=== PATIENT | male | born 1970 | race Caucasian/White ===

== ENCOUNTER 2023-06-24 07:33 | Outpatient (RCR) | payer BC, SELFPAY ==
[2023-05-29 08:05] LABS: Glucose - Point of Care 110 mg/dl (70-99)
[2023-05-29 08:53] LABS: Glucose - Point of Care 107 mg/dl (70-99)
== END 2023-06-24 23:59 | disposition home or self-care (01) ==
LOC: CRHB 07:33
PROVIDERS: ATTENDING PHYSICIAN Internal Medicine Cardiovascular Disease
DX: I25.10 Atherosclerotic heart disease of native coronary artery without angina pectoris (principal); Z95.1 Presence of aortocoronary bypass graft; Z95.5 Presence of coronary angioplasty implant and graft
CPT/HCPCS: 82962; 93797; 93798; G0422; G0423

== ENCOUNTER 2023-07-03 07:45 | Outpatient (RCR) | payer BC, SELFPAY | END 2023-07-03 23:59 | disposition home or self-care (01) | LOC: CRHB 07:45 | PROVIDERS: ATTENDING PHYSICIAN Internal Medicine Cardiovascular Disease | DX: I25.10 Atherosclerotic heart disease of native coronary artery without angina pectoris (principal); Z95.1 Presence of aortocoronary bypass graft | CPT/HCPCS: 93797; 93798 ==

== ENCOUNTER 2025-05-03 07:17 | Emergency (ER) | payer BC, SELFPAY ==
[2025-05-03] VITALS (7 sets, daily range): BP systolic 116–160; BP diastolic 78–92; BMI 28.2
[2025-05-03 08:34] LABS: Hematocrit 42.5 % (39.0-52.0); Hemoglobin 14.3 g/dL (13.0-18.0); Mean Corp Hgb Conc. 33.6 g/dL (33.0-37.0); Mean Corpuscular Volume 82.7 fL (80.0-94.0); Nucleated Red Blood Cells % 0 % (-); Platelet Count 241 10^3/uL (130-400); Red Cell Dist. Width 13.6 % (11.5-14.5)
[2025-05-03 08:44] LABS: ALT (SGPT) 48 U/L (0-50); AST (SGOT) 40 U/L (17-59); Albumin 4.5 g/dl (3.5-5.0); Alkaline Phosphatase 27 U/L (38-126); Blood Urea Nitrogen 13 mg/dl (9-20); Calcium 9.7 mg/dl (8.4-10.2); Carbon Dioxide 25 mmol/L (22-30); Chloride 106 mmol/L (98-107); Glucose 136 mg/dl (70-99); Potassium 4.5 mmol/L (3.5-5.1); Sodium 137 mmol/L (135-145); Total Protein 7.0 g/dl (6.3-8.2); eGFR > 60.00
--- NOTE | 2025-05-03 08:51 | ED.GENMED ---
History of Present Illness
General
Chief Complaint: Blood Pressure Problem
Source: patient
Exam Limitations: none
Time Seen by Provider: 05/03/25 07:39
Nursing documentation reviewed up to this point in time: agreed with
History of Present Illness
History of Present Illness:
55-year-old male past medical history of CAD quadruple bypass surgery in the past presenting to the emergency department today after having difficulty sleeping last night claims that his blood pressure was high at 140/101. Had some chest tightness
that is now resolved. Did take a nitroglycerin prior to arrival. Denies any ongoing symptoms at this point. Denies any nausea vomiting numbness weakness abdominal pain.
Review of Systems
Review of Systems
Allergies reviewed?: Yes
All Other Systems: ROS reviewed and negative except as documented in HPI and ROS
Phy Exam
Physical Exam
Physical Exam:
GENERAL: Alert , in no apparent distress
EYE: pupils equal and reactive
NECK: Supple, no significant adenopathy.
ENT: o/p clr, mmm.
CARDIAC: Regular rate and rhythm .
LUNGS: Clear breath sounds bilaterally, no acute respiratory distress, no wheezes/rales/rhonchi
ABDOMEN: Soft, without focal tenderness, no r/g, no cvat
NEUROLOGICAL: Alert and oriented, no focal neuro deficits
SKIN: Warm and dry, skin intact.
MUSCULOSKELETAL: No edema, well perfused.
PSYCH: Normal and appropriate interaction.
Course
Orders/Labs/Results
Orders:
Orders
05/03/25 07:58
Electrocardiogram (*1) Urgent
Reason for Study: Hypertension, Benign
EKG- Treatment ONCE
05/03/25 08:15
Complete Blood Count/With Diff Urgent
Comprehensive Metabolic Panel Urgent
Troponin I Urgent
05/03/25 08:23
Chest [CR Chest - 2 Views ] Urgent
Comment:
Reason For Exam: cp sob
05/03/25 10:39
Electrocardiogram (*1) Urgent
Reason for Study: Chest Pain
EKG- Treatment ONCE
05/03/25 10:48
Troponin I Urgent
Abnormal Lab Results
05/03/25
08:15
MPV 10.8 H fL
(7.4-10.4)
Glucose 136 H mg/dl
(70-99)
Alkaline Phosphatase 27 L U/L
(38-126)
05/03/25 08:15
05/03/25 08:15
Vital Signs
Initial and Last Documented VS:
Initial Vital Signs
Temp Pulse Resp BP Pulse Ox
97.6 F 68 18 160/92 95
05/03/25 07:25 05/03/25 07:25 05/03/25 07:25 05/03/25 07:25 05/03/25 07:25
Last Documented Vital Signs
Temp Pulse Resp BP Pulse Ox
97.6 F 71 21 128/81 95
05/03/25 07:25 05/03/25 12:00 05/03/25 12:00 05/03/25 12:00 05/03/25 12:00
MDM/Problems Addressed
MDM/Problems Addressed:
55-year-old male presenting to the emergency department today with concerns of chest heaviness some shortness of breath trouble sleeping last night. Took a nitroglycerin prior to arrival no ongoing symptoms at this point. On arrival blood pressure
was elevated but normalized without specific treatment. Normal heart lung exam. Other vital signs normal EKG with nonspecific T wave flattening. Otherwise here patient asymptomatic chest x-ray normal second troponin negative EKG unchanged.
Patient with no evidence of acute process at this time advised for close outpatient follow-up. Return precautions given.
*Pulse Oximetry
SaO2: 95
Oxygen Mode of Delivery: Room air
Patient hypoxic: no (95)
*Critical Care Note
Total Time (30-74mins, 75-104mins- exclusive of procedures): Not Applicable
ED Attending Note
-
Portions of this chart may have been created with voice recognition software.� Occasional wrong word or��sound alike� substitutions may have occurred due to the inherent limitations of voice recognition software.
Discharge Plan
Departure
Patient Disposition: Home (Routine Discharge)
Date of Disposition: 05/03/25
Time of Disposition: 12:39
Patient with high blood pressure during this ER visit?: No
Condition: Good
Covid-19: Not Applicable
Discharge Problem:
Breath shortness
Instructions: BLOOD PRESSURE
Referrals:
UNKNOWN - PT NOT,INTERVIEWE [Family Provider]
Activity Restrictions/Additional Instructions:
You came to the emergency department today with concerns of multiple symptoms. Here your reassuring assessment. Please follow closely as an outpatient with your outpatient doctors. Return for any worsening, new or concerning symptoms.
Interventions
Interventions:
*Risk Screen - Suicide Last Done: 05/03/25 08:35
*General Assessment Last Done: 05/03/25 08:58
*Neglect/Abuse Screening Last Done: 05/03/25 08:33
*ED COVID-19 Vaccine History Last Done: 05/03/25 08:33
*ED Influenza Vaccine History Last Done: 05/03/25 08:33
[facility] Risk Assessment Tool Last Done: 05/03/25 08:33
ED- Cardiac Assessment Last Done: 05/03/25 08:35
ED- Neurological Assessment Last Done: 05/03/25 08:35
ED- Pulmonary Assessment Last Done: 05/03/25 08:35
Discharge Date and Time
Print Language: HUNGARIAN
[2025-05-03 08:57] LABS: Troponin I < 0.012 ng/ml
[2025-05-03 11:21] LABS: Troponin I < 0.012 ng/ml
== END 2025-05-03 12:48 | disposition home or self-care (01) ==
LOC: EMR 07:17
PROVIDERS: Physician Assistant; EMERGENCY PHYSICIAN Student in an Organized Health Care Education/Training Program
DX: R06.02 Shortness of breath (principal); I25.810 Atherosclerosis of coronary artery bypass graft(s) without angina pectoris; I10 Essential (primary) hypertension; Z95.1 Presence of aortocoronary bypass graft
CPT/HCPCS: 99284; 71046; 80053; 84484; 85025; 93005